=== PATIENT | male | born 1985 | race Caucasian/White ===

== ENCOUNTER 2022-05-11 20:57 | Inpatient (IN) ==
[2022-05-11] MEDS ORDERED: SODIUM CHLORIDE 0.9% 1,000 ML IV STA (21:05)
[2022-05-11] MEDS ORDERED: fentaNYL 100 MCG/2 ML VIAL IV STA ×2 (21:05→21:58)
[2022-05-11] MEDS ORDERED: ONDANSETRON 4 MG/2 ML VIAL IV STA (21:05)
[2022-05-11 21:36] LABS: Basophils % 0.1 % (0.0-0.8); Eosinophils # 0.1 10*3/uL (0.0-0.87); Eosinophils % 0.6 % (0.00-10.9); Hematocrit 36.5 VOL% (42.0-52.0); Hemoglobin 13.3 GM/DL (14.0-18.0); Immature Granulocytes % 0.7 %; Immature Granulocytes Absolute 0.14 #; Lymphocytes # 2.1 10*3/uL (1.4-4.0); Lymphocytes % 10.2 % (21.2-54.2); Mean Corpuscular HGB Conc 36.4 GM/DL (32-36); Mean Corpuscular Volume 83.9 FL (87-102); Mean Platelet Volume 10.5 FL (9.6-12.0); Monocytes # 1.7 10*3/uL (0.11-0.8); Monocytes % 8.1 % (1.7-12.7); Neutrophils % 80.3 % (38.7-73.9); Platelet Count 227 T/CUMM (130-400); Red Blood Count 4.35 MC/CUMM (3.8-5.5); Red Cell Distribution Width 12.1 % (9.3-17.3); White Blood Count 20.5 T/CUMM (4-12)
[2022-05-11 21:53] LABS: Calcium 7.9 MG/DL (8.5-10.1); Osmolality,Calculated 289.1 MOS/KG (273-304); Potassium 3.5 MMOL/L (3.5-5.1)
[2022-05-11 21:56] LABS: INR 0.9; PT Patient Result 10.4 SECS (10.1-12.1); Partial Thromboplastin Time 22.6 SECS (23.7-32.9)
[2022-05-11 21:59] LABS: Platelet Estimate Normal
[2022-05-11] MEDS ORDERED: DIPHTHERIA/TETANUS ADULT VACCINE 0.5 ML SYRINGE IM ONE (22:06)
[2022-05-11] MEDS ORDERED: ceFAZolin 1,000 MG VIAL ONE (22:29)
[2022-05-11] MEDS ORDERED: propofoL 200 MG/20 ML VIAL IV ONE (22:39)
[2022-05-11] MEDS ORDERED: fentaNYL 250 MCG/5 ML VIAL ONE (22:39)
[2022-05-11] MEDS ORDERED: MIDAZOLAM 2 MG/2 ML VIAL ONE (22:39)
[2022-05-11] MEDS ORDERED: ONDANSETRON 4 MG/2 ML VIAL ONE (22:39)
[2022-05-11] MEDS ORDERED: SUCCINYLCHOLINE 200 MG/10 ML VIAL ONE (22:39)
[2022-05-11] MEDS ORDERED: SEVOFLURANE 1 UNIT/15 MINUTE INH ONE (22:39)
[2022-05-11] MEDS ORDERED: ROCURONIUM 50 MG/5 ML VIAL IV ONE (22:39)
[2022-05-11] MEDS ORDERED: LIDOCAINE 2% 5 ML VIAL ONE (22:39)
[2022-05-11] MEDS ORDERED: PHENYLEPHRINE 1 MG/10 ML SYRINGE IV ONE (22:39)
[2022-05-11] MEDS ORDERED: ceFAZolin 2,000 MG/50 ML DUPLEX IV ONE (22:41)
[2022-05-11] MEDS ORDERED: MAGNESIUM HYDROXIDE SUSP 30 ML UDCUP PO PRN (22:50)
[2022-05-11] MEDS ORDERED: cefTRIAXone 1,000 MG VIAL ONE (22:57)
[2022-05-11] MEDS ORDERED: CLINDAMYCIN INJ 900 MG/50 ML PREMIX IV ONE (23:00)
[2022-05-11] MEDS ORDERED: TETANUS IMMUNE GLOBULIN 250 UNIT SYRINGE IM STA (23:14)
[2022-05-11] MEDS ORDERED: DIPH/TET/ACEL PERT BOOSTER VACCINE 0.5 ML VIAL IM STA (23:19)
[2022-05-11] MEDS ORDERED: fentaNYL 100 MCG/2 ML VIAL ONE ×3 (23:24→23:25)
[2022-05-11] MEDS ORDERED: LACTATED RINGERS 1,000 ML IV ONE (23:38)
[2022-05-12] MEDS ORDERED: ACETAMINOPHEN INJ 1,000 MG/100 ML VIAL IV ONE (00:50)
[2022-05-12] MEDS ORDERED: VANCOMYCIN 1,000 MG VIAL ONE (00:51)
[2022-05-12] MEDS ORDERED: HYDROmorphone 1 MG/1 ML SYRINGE ONE (01:03)
[2022-05-12 01:40] LABS: Basophils % 0.1 % (0.0-0.8); Eosinophils % 0.2 % (0.00-10.9); Hemoglobin 11.6 GM/DL (14.0-18.0); Immature Granulocytes % 0.7 %; Lymphocytes # 1.2 10*3/uL (1.4-4.0); Lymphocytes % 8.1 % (21.2-54.2); Mean Corpuscular HGB Conc 34.1 GM/DL (32-36); Mean Corpuscular Volume 86.3 FL (87-102); Mean Platelet Volume 10.4 FL (9.6-12.0); Monocytes # 1.2 10*3/uL (0.11-0.8); Monocytes % 7.9 % (1.7-12.7); Platelet Count 202 T/CUMM (130-400); Red Blood Count 3.94 MC/CUMM (3.8-5.5); Red Cell Distribution Width 12.3 % (9.3-17.3); White Blood Count 15.2 T/CUMM (4-12)
[2022-05-12 02:04] LABS: Alanine Aminotransferase 30 U/L (16-61); Albumin 3.3 G/DL (3.4-5.0); Alkaline Phosphatase 37 U/L (45-117); Aspartate Amino Transferase 22 U/L (0-37); Bilirubin,Total < 0.39 MG/DL (0.20-1.00); Blood Urea Nitrogen 23 MG/DL (7-18); Calcium 7.4 MG/DL (8.5-10.1); Carbon Dioxide 23 MMOL/L (21-32); Chloride 110 MMOL/L (98-107); Glucose 140 MG/DL (74-106); Osmolality,Calculated 282.5 MOS/KG (273-304); Potassium 4.2 MMOL/L (3.5-5.1); Sodium 139 MMOL/L (136-145); Total Protein 5.7 G/DL (6.4-8.2)
[2022-05-12] MEDS: LACTATED RINGERS 1,000 ML IV SCH ×2 (02:45→09:00)
[2022-05-12] MEDS: MORPHINE 10 MG/1 ML VIAL IM PRN ×3 (02:45→14:35)
[2022-05-12] MEDS ORDERED: cefTRIAXone 1,000 MG in SODIUM CHLORIDE 0.9% 100 ML IV SCH (03:00)
[2022-05-12] MEDS: ONDANSETRON 4 MG/2 ML VIAL IV PRN ×3 (03:01→12:10)
[2022-05-12] MEDS ORDERED: CLINDAMYCIN INJ 900 MG/50 ML PREMIX IV SCH (06:30)
[2022-05-12] MEDS ORDERED: ENOXAPARIN 40 MG/0.4 ML SYRINGE SUBCUT ONE (08:31)
[2022-05-12] MEDS ORDERED: lisinopriL 10 MG TABLET PO SCH (09:00)
[2022-05-12] MEDS ORDERED: PANTOPRAZOLE 40 MG TABLET PO SCH (09:00)
[2022-05-12 11:54] VITALS: BP 150/73
[2022-05-12] MEDS ORDERED: KETOROLAC 30 MG/1 ML VIAL IV ONE (12:36)
== END 2022-05-12 15:30 | disposition hospice, home (50) | DRG 492 ==
LOC: N.ED 20:57 → N.EDINP 22:50 → N.3E 05-12 02:09
PROVIDERS: ADMIT Orthopaedic Surgery; ATTEND Orthopaedic Surgery